=== PATIENT | female | born 1940 | race Caucasian/White ===

== ENCOUNTER 2018-03-25 13:38 | Outpatient (CLI) | payer MEDICARE, BC ==
[~2018-03-25] VITALS: Ht 165.1 cm; Wt 54.5 kg
[2018-03-25 14:04] VITALS: BP 126/65; Ht 165.1 cm; Wt 54.5 kg
== END 2018-03-25 14:24 | disposition home or self-care (01) ==
LOC: D.OPS 13:38
DX: M81.0 Age-related osteoporosis without current pathological fracture (principal)

== ENCOUNTER 2018-10-07 14:16 | Outpatient (CLI) | payer MEDICARE, BC ==
[~2018-10-07] VITALS: Ht 165.1 cm; Wt 54.1 kg
[2018-10-07 15:20] VITALS: BP 117/72; Ht 165.1 cm; Wt 54.1 kg
--- NOTE | 2018-10-07 15:26 | NUR ---
PT LEFT UNIT AMBULATING AT 1525
== END 2018-10-07 15:25 | disposition home or self-care (01) ==
LOC: D.OPS 14:16
DX: M81.0 Age-related osteoporosis without current pathological fracture (principal)

== ENCOUNTER 2019-04-07 13:41 | Outpatient (CLI) | payer MEDICARE, BC ==
[~2019-04-07] VITALS: Ht 165.1 cm; Wt 54.5 kg
[2019-04-07 13:56] VITALS: BP 116/73; Ht 165.1 cm; Wt 54.5 kg
== END 2019-04-07 14:04 | disposition home or self-care (01) ==
LOC: D.OPS 13:41
PROVIDERS: ATTEND Family Medicine
DX: M81.0 Age-related osteoporosis without current pathological fracture (principal)